=== PATIENT | female | born 1990 | race Caucasian/White ===

== ENCOUNTER 2021-01-01 08:00 | Outpatient (CLI) | payer BC ==
[2021-01-01 11:44] LABS: BASOPHILS # (AUTO) 0.1 10^3/uL (0.0-0.1); BASOPHILS % (AUTO) 0.8 %; EOSINOPHILS # (AUTO) 0.1 10^3/uL (0.0-0.7); EOSINOPHILS % (AUTO) 1.9 %; HGB - HEMOGLOBIN 13.5 g/dL (12.0-16.0); LYMPHOCYTES # (AUTO) 1.9 10^3/uL (1.5-3.5); LYMPHOCYTES % (AUTO) 30.1 %; MEAN CORPUSCULAR HEMOGLOBIN 30.1 pg (27.0-31.0); MEAN CORPUSCULAR HGB CONC 32.9 g/dL (32.0-36.0); MEAN CORPUSCULAR VOLUME 91.3 fL (81.0-99.0); MONOCYTES # (AUTO) 0.6 10^3/uL (0.0-1.0); MONOCYTES % (AUTO) 8.9 %; NEUTROPHILS # (AUTO) 3.7 10^3/uL (1.5-6.6); PLT - PLATELET COUNT 232 10^3/uL (130-450); RED BLOOD COUNT 4.49 10^6/uL (4.20-5.40); RED CELL DISTRIBUTION WIDTH 11.1 % (12.0-15.0); WHITE BLOOD COUNT 6.3 x10^3/uL (4.8-10.8)
[2021-01-01 11:56] LABS: ALBUMIN 4.3 g/dL (3.2-5.5); ALBUMIN/GLOBULIN RATIO 1.5 (1.0-2.2); BILIRUBIN,TOTAL 0.6 mg/dL (0.2-1.0); CALCIUM 9.4 mg/dL (8.5-10.3); CREATININE 0.8 mg/dL (0.4-1.0); POTASSIUM 4.1 mmol/L (3.5-5.0); TOTAL PROTEIN 7.2 g/dL (6.7-8.2)
[2021-01-01 12:03] LABS: BILIRUBIN,URINE NEGATIVE (NEGATIVE); CLARITY,URINE CLEAR (CLEAR); GLUCOSE, URINE (UA) NEGATIVE (NEGATIVE); KETONES,URINE (UA) NEGATIVE (NEGATIVE); LEUKOCYTE ESTERASE, URINE NEGATIVE (NEGATIVE); NITRITE,URINE NEGATIVE (NEGATIVE); OCCULT BLOOD,URINE NEGATIVE (NEGATIVE); PROTEIN,URINE NEGATIVE (NEGATIVE); UROBILINOGEN,URINE 0.2 (NORMAL) E.U./dL (NORMAL)
[2021-01-01 12:16] LABS: BACTERIA,URINE None Seen /HPF (None Seen); RBC,URINE None Seen /HPF (0-5); SQUAMOUS EPITHELIAL CELL,UR NONE SEEN (<= Few); WBC,URINE 0-3 /HPF (0-5)
== END 2021-01-01 23:59 | disposition home or self-care (01) ==
LOC: LAB.N 08:00
PROVIDERS: ATTEND Family Medicine
DX: R10.31 Right lower quadrant pain (principal)
CPT/HCPCS: 36415; 80053; 81001; 81003; 82150; 83690; 85025; 87086

== ENCOUNTER 2022-03-17 12:38 | Outpatient (CLI) | payer BC ==
[2022-03-17 14:11] LABS: BASOPHILS # (AUTO) 0.1 10^3/uL (0.0-0.1); BASOPHILS % (AUTO) 0.5 %; EOSINOPHILS # (AUTO) 0.1 10^3/uL (0.0-0.7); EOSINOPHILS % (AUTO) 0.9 %; HCT - HEMATOCRIT 38.6 % (37.0-47.0); HGB - HEMOGLOBIN 12.9 g/dL (12.0-16.0); LYMPHOCYTES # (AUTO) 1.7 10^3/uL (1.5-3.5); LYMPHOCYTES % (AUTO) 18.1 %; MEAN CORPUSCULAR HEMOGLOBIN 28.9 pg (27.0-31.0); MEAN CORPUSCULAR HGB CONC 33.4 g/dL (32.0-36.0); MEAN CORPUSCULAR VOLUME 86.4 fL (81.0-99.0); MEAN PLATELET VOLUME 9.4 fL (7.9-10.8); MONOCYTES # (AUTO) 0.6 10^3/uL (0.0-1.0); MONOCYTES % (AUTO) 6.5 %; NEUTROPHILS % (AUTO) 73.8 %; PLT - PLATELET COUNT 272 10^3/uL (130-450); RED BLOOD COUNT 4.47 10^6/uL (4.20-5.40); RED CELL DISTRIBUTION WIDTH 11.8 % (12.0-15.0); WHITE BLOOD COUNT 9.5 x10^3/uL (4.8-10.8)
[2022-03-18 03:09] LABS: HBsAG SCREEN Negative (Negative); HCV AB 0.9 s/co ratio (0.0-0.9)
[2022-03-18 05:09] LABS: HIV SCREEN 4TH GENERATION Non Reactive (Non Reactive)
[2022-03-18 08:09] LABS: VARICELLA-ZOSTER AB IGG 3061 index (Immune >165)
[2022-03-18 11:09] LABS: RPR Non Reactive (Non Reactive)
== END 2022-03-17 12:39 | disposition home or self-care (01) ==
LOC: LAB 12:38
PROVIDERS: ATTEND Nurse Practitioner Obstetrics & Gynecology
DX: Z36.89 Encounter for other specified antenatal screening (principal)
CPT/HCPCS: 36415; 85025; 86592; 86762; 86787; 86803; 86850; 86900; 86901; 87340; 87389

== ENCOUNTER 2022-05-31 07:21 | Outpatient (CLI) | payer BC ==
--- NOTE | 2022-05-31 11:57 | Ultrasound Report ---
PROCEDURE: OB Detailed Eval INDICATIONS: SUPERVISION OF OUTSIDE/PRIOR DATING DATA: Last menstrual period (LMP): 01/09/2022. LMP-based estimated date of delivery (LOS): 10/16/2022. First dating scan (date and location): 05/31/2022. Estimated date of delivery (LOS) from first dating scan: 10/16/2022. The below data below was generated using the clinical LOS of 10/16/2022 TECHNIQUE: Real-time scanning was performed of the fetus, with image documentation and biometric measurements. Endovaginal scanning: None COMPARISON: None. FINDINGS: General: A single living intrauterine gestation is present. Presentation: Variable Placenta: Placental position is posterior/fundal, without previa. Amniotic fluid index: 14.5 cm, normal for gestational age. heart rate: 152 beats per minute. Maternal cervical canal: 3.5 cm long; normal length is 2.5 cm or more. biometrics: Biparietal diameter: 4.7 cm, 20 week 2 day Head circumference: 18.0 cm, 20 week 3 day Abdominal circumference: 15.9 cm, 21 week 0 day Femur length: 3.2 cm, 20 week 0 day Estimated gestational age from initial scan: 20 week 2 day Composite gestational age from present scan: 20 week 2 day Estimated weight and percentile: 361.3 g, 60th percentile Measurement variability in biometric dating: +/- 10 days from 12-20 weeks gestation, +/- 2 weeks from 20-30 weeks gestation, +/- 3 weeks at 30 weeks gestation or later. Anatomic survey: Neuro: Ventricles are normal at less than 10 mm. Cisterna magna is normal at 3-11 mm. Cerebellum i s normal in size and morphology. Nuchal skin fold: Normal at less than 6 mm between 14 and 20 weeks gestational age. Face: Nose and lips, facial profile are normal. Spine: No evidence for spina bifida. Heart: 4-chambered heart is present, with normal ventricular outflow tracts. Diaphragm: Diaphragm is intact. Stomach: Left-sided stomach is present. Kidneys: Bilateral renal pyelocaliectasis measures 6 mm on the right and 5 mm left Cord: 3 vessel cord has orthotopic insertion. Bladder: Normal in size. Extremities: All 4 extremities are visualized. IMPRESSION: Single live intrauterine consistent with a 20 week 2 day gestation by current ultrasound. Bilateral renal pelvocaliectasis. Attention will be given on follow-up. Remainder of the anatomic survey within normal limits Reviewed by: Goyo Harding MD on 05/31/2022 10:56 AM [facility] Approved by: Goyo Harding MD on 05/31/2022 10:56 AM [facility] Station ID: [id number]
== END 2022-05-31 07:22 | disposition home or self-care (01) ==
LOC: DI 07:21
PROVIDERS: ATTEND Nurse Practitioner Obstetrics & Gynecology
DX: Z34.02 Encounter for supervision of normal first pregnancy, second trimester (principal); Z36.89 Encounter for other specified antenatal screening

== ENCOUNTER 2022-07-11 11:18 | Outpatient (CLI) | payer BC ==
[2022-07-11 12:38] LABS: HGB - HEMOGLOBIN 12.2 g/dL (12.0-16.0); MEAN CORPUSCULAR VOLUME 91.1 fL (81.0-99.0); MEAN PLATELET VOLUME 9.4 fL (7.9-10.8); RED BLOOD COUNT 4.06 10^6/uL (4.20-5.40); RED CELL DISTRIBUTION WIDTH 12.1 % (12.0-15.0); WHITE BLOOD COUNT 10.2 x10^3/uL (4.8-10.8)
== END 2022-07-11 11:19 | disposition home or self-care (01) ==
LOC: LAB 11:18
PROVIDERS: ATTEND Nurse Practitioner Obstetrics & Gynecology
DX: Z36.9 Encounter for antenatal screening, unspecified (principal)
CPT/HCPCS: 36415; 82950; 85027

== ENCOUNTER 2022-08-30 18:33 | Outpatient (CLI) | payer BC ==
--- NOTE | 2022-09-01 10:18 | Ultrasound Report ---
PROCEDURE: OB F/U or Repeat INDICATIONS: BILATERL RENAL PELVIECTASIS OUTSIDE/PRIOR DATING DATA: Last menstrual period (LMP): 01/09/2022. LMP-based estimated date of delivery (LOS): 10/16/2022. First dating scan (date and location): 05/31/2022 at [facility]. Estimated date of delivery (LOS) from first dating scan: 10/16/2022. The below data below was generated using the working LOS of 10/16/2022 TECHNIQUE: Real-time scanning was performed of the fetus, with image documentation and biometric measurements. COMPARISON: OB ultrasound, 05/31/2022. FINDINGS: General: A single living intrauterine gestation is present. Presentation: Vertex Placenta: Placental position is posterior, without previa. Amniotic fluid index: 12.1 cm; largest pocket 4.5 cm. heart rate: 130 beats per minute. Maternal cervical canal: Closed measuring 3.4 cm long; normal length is 2.5 cm or more. biometrics: Not performed Estimated gestational age from initial scan: 33 weeks 2 days. Measurement variability in biometric dating: +/- 10 days from 12-20 weeks gestation, +/- 2 weeks from 20-30 weeks gestation, +/- 3 weeks at 30 weeks gestation or more. Other: Bilateral mild renal pelviectasis, measuring 0.7 cm in left kidney and a 0.6 m in right kidney. IMPRESSION: 1. A single living IUP redemonstrated. 2. Persistent mild renal pelviectasis. 3. Normal [place]. Reviewed by: Jacobo Valdez MD on 09/01/2022 10:17 AM PDT Approved by: Jacobo Valdez MD on 09/01/2022 10:17 AM PDT Station ID: [id number]
== END 2022-08-30 18:34 | disposition home or self-care (01) ==
LOC: DI 18:33
PROVIDERS: ATTEND Nurse Practitioner Obstetrics & Gynecology
DX: O36.899 Maternal care for other specified fetal problems, unspecified trimester (principal); Z3A.33 33 weeks gestation of pregnancy

== ENCOUNTER 2022-10-23 04:44 | Inpatient (IN) | payer BC ==
[2022-10-23] MEDS ORDERED: TRANEXAMIC ACID IN NACL 1,000 MG/100 ML BAG IV PRN (05:20)
[2022-10-23] MEDS ORDERED: lidocaine 1% 20 ML MDV ID PRN (05:20)
[2022-10-23] MEDS ORDERED: NIFEdipine 10 MG CAPSULE PO PRN (05:20)
[2022-10-23] MEDS ORDERED: miSOPROStoL 200 MCG TABLET PR PRN (05:20)
[2022-10-23] MEDS ORDERED: LACTATED RINGERS 1,000 ML IV PRN (05:20)
[2022-10-23] MEDS ORDERED: hydrALAZINE INJ 20 MG/ML VIAL IVP PRN ×2 (05:20)
[2022-10-23] MEDS ORDERED: METHYLERGONOVINE 0.2 MG/ML VIAL IM PRN (05:20)
[2022-10-23] MEDS ORDERED: miSOPROStoL 200 MCG TABLET BC PRN (05:20)
[2022-10-23] MEDS ORDERED: CARBOPROST TROMETHAMINE 250 MCG/ML AMP IM PRN (05:20)
[2022-10-23] MEDS ORDERED: OXYTOCIN 10 UNIT/ML VIAL IM PRN (05:20)
[2022-10-23] MEDS ORDERED: TERBUTALINE 1 MG/ML VIAL SUBQ PRN (05:20)
[2022-10-23] MEDS ORDERED: LABETALOL 20 MG/4 ML SYRINGE IVP PRN ×3 (05:20)
[2022-10-23] MEDS ORDERED: OXYTOCIN/SODIUM CHLORIDE 500 ML IV PRN (05:20)
[2022-10-23] MEDS ORDERED: fentaNYL 100 MCG/2 ML VIAL IVP PRN (05:20)
[2022-10-23] MEDS ORDERED: SODIUM CHLORIDE FLUSH 0.9% 10 ML SYRINGE IVP PRN (05:20)
[2022-10-23] MEDS ORDERED: AMPICILLIN 2 GM in SODIUM CHLORIDE 0.9% MINIBAG 100 ML IV ONE (06:00)
[2022-10-23] MEDS ORDERED: SODIUM CHLORIDE FLUSH 0.9% 10 ML SYRINGE IVP SCH (06:00)
[2022-10-23 06:11] LABS: BASOPHILS % (AUTO) 0.4 %; EOSINOPHILS # (AUTO) 0.1 10^3/uL (0.0-0.7); EOSINOPHILS % (AUTO) 0.7 %; HCT - HEMATOCRIT 38.4 % (37.0-47.0); HGB - HEMOGLOBIN 13.1 g/dL (12.0-16.0); LYMPHOCYTES # (AUTO) 2.1 10^3/uL (1.5-3.5); LYMPHOCYTES % (AUTO) 19.1 %; MEAN CORPUSCULAR HEMOGLOBIN 30.8 pg (27.0-31.0); MEAN CORPUSCULAR HGB CONC 34.1 g/dL (32.0-36.0); MEAN CORPUSCULAR VOLUME 90.4 fL (81.0-99.0); MEAN PLATELET VOLUME 10.7 fL (7.9-10.8); MONOCYTES # (AUTO) 0.9 10^3/uL (0.0-1.0); MONOCYTES % (AUTO) 8.1 %; NEUTROPHILS # (AUTO) 7.7 10^3/uL (1.5-6.6); NEUTROPHILS % (AUTO) 71.2 %; PLT - PLATELET COUNT 208 10^3/uL (130-450); RED BLOOD COUNT 4.25 10^6/uL (4.20-5.40); RED CELL DISTRIBUTION WIDTH 12.1 % (12.0-15.0); WHITE BLOOD COUNT 10.8 x10^3/uL (4.8-10.8)
[2022-10-23] MEDS ORDERED: diphenhydrAMINE INJ 50 MG/ML VIAL IVP PRN ×3 (06:33→11:59)
[2022-10-23] MEDS: AMPICILLIN 1 GM in SODIUM CHLORIDE 0.9% MINIBAG 100 ML IV SCH ×2 (10:04→13:59)
[2022-10-23] MEDS ORDERED: METOCLOPRAMIDE 10 MG/2 ML VIAL IVP PRN ×2 (10:57→11:59)
[2022-10-23] MEDS ORDERED: ONDANSETRON 4 MG/2 ML VIAL IVP PRN ×2 (10:57→11:59)
[2022-10-23] MEDS ORDERED: ePHEDrine 50 MG/ML VIAL IVP PRN ×2 (10:57→11:59)
[2022-10-23] MEDS ORDERED: NALOXONE 0.4 MG/ML VIAL IVP PRN ×2 (10:57→11:59)
[2022-10-23] MEDS ORDERED: NALBUPHINE 10 MG/ML AMP IVP PRN ×2 (10:57→11:59)
[2022-10-23] MEDS ORDERED: fent/BUPIV 2 MCG/0.125% 250 ML EP PRN (10:57)
[2022-10-23] MEDS ORDERED: ROPIVACAINE 0.2% 200 MG/100 ML BAG EP PRN ×2 (11:06→11:59)
--- NOTE | 2022-10-23 11:11 | HISTORY & PHYSICAL EXAMINATION ---
Admit History - Visit Reason Visit Reason: Contractions - : 2 Parity: 1 Premature: 0 Ectopic: 0 : 0 Care: positive: [facility] Risk/History: positive: None Complications This : positive: None Smoking Status: Never smoker - Mother's Labs Mother's Blood Type: positive: B Mother's RH: positive: Positive GBS: positive: Group B Strep Positive Rubella Status: positive: Immune - HPI Diagnosis/Indication for NST: Post-dates gestation Current EDU 10/16/22 Gestation 41 Weeks and 0 Days 2 Vital Signs Temperature 36.5 C 10/23/22 05:55 Heart Rate 58 L 10/23/22 05:55 Respiratory Rate 16 10/23/22 05:55 Blood Pressure 129/88 H 10/23/22 05:55 Temperature 36.5 C 10/23/22 05:55 Heart Rate 58 L 10/23/22 05:55 Respiratory Rate 16 10/23/22 05:55 Blood Pressure 129/88 H 10/23/22 05:55 O2 Saturation If not protocol: Oxygen Flow, liters/minute - NST Procedure FHR baseline 140s, moderate variability, + accels, no decels Contractions palpate moderate every 2-3 minutes with soft resting tone Meds/Allgy - Allergies Allergies/Adverse Reactions: Allergies Allergy/AdvReac Type Severity Reaction Status Date / Time Penicillins AdvReac Unknown Rash Verified 10/23/22 05:20 Review of Systems - Constitutional Constitutional: denies: Fatigue, Fever, Chills, Malaise - Eyes Eyes: denies: Blurred vision, Spots in vision, Dipolpia - Cardiovascular Cariovascular: denies: Irregular heart rate, Palpitations, Chest pain, Edema - Respiratory Respiratory: denies: Cough, Wheezing, SOB at rest - Gastrointestinal Gastrointestinal: denies: Constipation, Diarrhea, Nausea, Vomiting - Genitourinary Genitourinary: denies: Dysuria - Musculoskeletal Musculoskeletal: denies: Back pain - Integumentary Integumentary: denies: Rash, Pruritis - Neurological Neurological: denies: Headache - Psychiatric Psychiatric: denies: Depression, Anxiety - Hematologic/Lymphatic Hematologic/Lymphatic: denies: Anemia Physical - Abdominal Exam Vital Signs: Temp Pulse Resp BP Pulse Ox O2 Flow Rate 36.5 C 58 L 16 129/88 H 10/23/22 05:55 10/23/22 05:55 10/23/22 05:55 10/23/22 05:55 Contraction Frequency (min/apart): 2-3 Contraction Intensity: positive: Moderate Uterine Resting Tone: positive: Soft - Monitoring Heart Rate Baseline: 140 Strip Review: positive: Category I - Presentation Presentation: positive: Vertex - Vaginal Exam Membranes: positive: Membranes intact Dilation (in cm): 4-5 Effacement (%): 80 Station: positive: -3 Cervical Position: positive: Posterior - Speculum Exam Speculum Exam Performed: positive: No Plan for Labor - Plan For Labor Plan for Labor: HPI: Reta is a 31yo @ 41.0wks gestation by LMP c/w 10.1wks U/S who presents to [facility] with c/o contractions. She was scheduled this morning for medical induction of labor secondary to postdates however her contractions have increased in frequency and intensity since early this morning. She denies leakage of fluid. She reports increased mucousy discharge that has occasional blood streaks in it since last night but denies other vaginal bleeding. She reports +FM. FHR category I. She has been a patient of [facility] for the duration of her which has remained uncomplicated. Her FAS did reveal mild bilateral renal pelviectasis with a repeat ultrasound at 33wks which demonstrated persistent, mild renal pelviectasis. She will be admitted to [facility] for expectant management. She is supported by her Iam. 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 SAB x0. Last pap 10/2020 WNL, No hx of abnormals. Medical Hx: anxiety/depression Surgical Hx: wisdom teeth removal Family Hx: Thyroid disease - mother; heart disease - MGF; skin cancer - father; breast cancer - PGM Social: , lives with Iam. Works at [employer]. No tobacco, ETOH or recreational drug use. Caffeine intake -minimal. Meds: PNV, Vitamin D Allergies: Penicillin - rash as a baby course: B positive, antibody negative Rubella immune, varicella immune Hep B non-reactive, HIV non-reactive, RPR non-reactive, Hep C non-reactive Initial U/S @ 10.1wks gestation c/w LMP dating COVID-19 vaccine - declined Tdap vaccine - received 3rd trimester FAS WNL with the exception of bilateral renal pelvocaliectasis (6mm-right, 5mm- left). Posterior fundal placenta, no previa. Size c/w dating (EFW 60%tile). 3VC. Glucola- 79 F/u ultrasound at 33wks: Persistent mild renal pelviectasis. 0.7 cm left kidney and 0.6cm in right kidney. GBS positive Physical exam: Normocephalic, atraumatic Heart RRR w/o M/G/R Lungs CTAB Abdomen gravid, soft, nontender FHR baseline 140s, moderate variability, + accels, no decels Contractions palpate moderate every 2-3 minutes with soft resting tone SVE 4-5/80/-3, posterior and vertex with intact membranes. Bilateral LE's trace edema Mood is good Assessment: 31yo @ 41.0wks gestation by LMP c/w 10.1wk U/S Postdates Early labor FHR Category I GBS positive Plan: Admit for expectant management. Continuous monitoring. Reviewed risks vs benefits of Ampicillin for GBS prophyalxis secondary to childhood rash with penicillin and pt desires to initiate. Initiate penicillin for GBS prophylaxis per protocol. Encouraged ambulation and position changes. Jacuzzi PRN. Nitrous oxide PRN. Epidural per maternal request. Anticipate .
--- NOTE | 2022-10-23 12:02 | ANESTHESIA ---
Pre-Anesthesia VS, & Labs - Diagnosis labor - Procedure epidural for labor analgesia Vital Signs: Temp Pulse Resp BP Pulse Ox O2 Flow Rate 36.5 C 58 L 16 129/88 H 10/23/22 05:55 10/23/22 05:55 10/23/22 05:55 10/23/22 05:55 Height: 5 ft 6 in Weight (kg): 92.986 kg Body Mass Index: 33.0 BMI Classification: Obese - Is Patient ?: Yes - Lab Results Current Lab Results: Laboratory Tests 10/23/22 05:55: WBC 10.8, RBC 4.25, Hgb 13.1, Hct 38.4, MCV 90.4, MCH 30.8, MCHC 34.1, RDW 12.1, Plt Count 208, MPV 10.7, Neut # (Auto) 7.7 H, Lymph # (Auto) 2.1, [place] # (Auto) 0.9, Eos # (Auto) 0.1, Baso # (Auto) 0.0, Absolute Nucleated RBC 0.00, Nucleated RBC % 0.0 10/23/22 05:55: Blood Type B POSITIVE, Antibody Screen NEGATIVE Lab results reviewed: Yes Fish Bones: 10/23/22 05:55 Home Medications and Allergies Active Medications Carboprost Tromethamine (Carboprost Tromethamine 250 Mcg/Ml Amp) 250 mcg IM .ONCE PRN PRN Reason: Hemorrhage Diphenhydramine HCl (Diphenhydramine Inj 50 Mg/Ml Vial) 50 mg IVP Q6H PRN PRN Reason: Anaphylaxis Diphenhydramine HCl (Diphenhydramine Inj 50 Mg/Ml Vial) 12.5 - 25 mg IVP Q6HR PRN PRN Reason: ITCHING Ephedrine Sulfate (Ephedrine 50 Mg/Ml Vial) 5 mg IVP Q5M PRN PRN Reason: For SBP<100;give until SBP>100 Fentanyl (Fentanyl 100 Mcg/2 Ml Vial) 50 mcg IVP Q1H PRN PRN Reason: Severe Pain (score 7-10) Hydralazine HCl (Hydralazine Inj 20 Mg/Ml Vial) 5 - 10 mg IVP Q20M PRN; Protocol PRN Reason: SBP> or= 160 OR DBP> or= 110 Hydralazine HCl (Hydralazine Inj 20 Mg/Ml Vial) 10 mg IVP .ONCE PRN; Protocol PRN Reason: SBP> or= 160 OR DBP> or= 110 Lactated Ringer's (Lr) 500 mls @ 999 mls/hr IV PRN PRN PRN Reason: distress, maternal hypot Oxytocin/Sodium Chloride (Pitocin/Sodium Chloride) 500 mls @ 999 mls/hr IV PRN PRN; Protocol PRN Reason: POST- HEMORR PREVENTION Tranexamic Acid (Tranexamic 1,000 Mg/100ml-Nacl) 1,000 mg in 100 mls @ 600 mls/hr IV Q30M PRN PRN Reason: EBL >1200mL and within 3hr Ampicillin Sodium 1 gm/ Sodium (Chloride) 100 mls @ 200 mls/hr IV Q4H ARSENIO Last Admin: 10/23/22 10:04 Dose: 200 mls/hr Ropivacaine (Naropin 0.2%) 200 mg in 100 mls @ 0 mls/hr EP PRN PRN; Protocol PRN Reason: PAIN 1-4 Labetalol HCl (Labetalol 20 Mg/4 Ml Syringe) 20 - 80 mg IVP Q10M PRN; Protocol PRN Reason: SBP> or= 160 OR DBP> or= 110 Labetalol HCl (Labetalol 20 Mg/4 Ml Syringe) 20 mg IVP .ONCE PRN; Protocol PRN Reason: SBP> or= 160 OR DBP> or= 110 Labetalol HCl (Labetalol 20 Mg/4 Ml Syringe) 20 - 40 mg IVP Q10M PRN; Protocol PRN Reason: SBP> or= 160 OR DBP> or= 110 Lidocaine HCl (Lidocaine 1% 20 Ml Mdv) 20 ml ID .ONCE PRN PRN Reason: PERINEAL REPAIR Stop: 10/26/22 05:20 Methylergonovine Maleate (Methylergonovine 0.2 Mg/Ml Vial) 0.2 mg IM .ONCE PRN PRN Reason: Hemorrhage Metoclopramide HCl (Metoclopramide 10 Mg/2 Ml Vial) 10 mg IVP Q6HR PRN PRN Reason: Nausea / Vomiting Misoprostol (Misoprostol 200 Mcg Tablet) 600 mcg BC .ONCE PRN PRN Reason: Hemorrhage Misoprostol (Misoprostol 200 Mcg Tablet) 800 mcg TN .ONCE PRN PRN Reason: Hemorrhage Nalbuphine HCl (Nalbuphine 10 Mg/Ml Amp) 2.5 - 5 mg IVP Q4H PRN PRN Reason: ITCHING Naloxone HCl (Naloxone 0.4 Mg/Ml Vial) 0.1 mg IVP Q2M PRN PRN Reason: RR<8 Nifedipine (Nifedipine 10 Mg Capsule) 10 - 20 mg PO Q20M PRN; Protocol PRN Reason: SBP> or= 160 OR DBP> or= 110 Ondansetron HCl (Ondansetron 4 Mg/2 Ml Vial) 4 mg IVP Q6HR PRN PRN Reason: Nausea / Vomiting Oxytocin (Oxytocin 10 Unit/Ml Vial) 10 unit IM .ONCE PRN PRN Reason: Step One if no IV access. Sodium Chloride (Sodium Chloride Flush 0.9% 10 Ml Syringe) 10 ml IVP PRN PRN PRN Reason: NEEDED PER PROVIDER ORDERS Sodium Chloride (Sodium Chloride Flush 0.9% 10 Ml Syringe) 10 ml IVP Q8H ARSENIO Terbutaline Sulfate (Terbutaline 1 Mg/Ml Vial) 0.25 mg SUBQ .ONCE PRN PRN Reason: Tachystole Allergies/Adverse Reactions: Allergies Allergy/AdvReac Type Severity Reaction Status Date / Time Penicillins AdvReac Unknown Rash Verified 10/23/22 05:20 Anes History & Medical History - Anesthetic History Anesthesia Complications: reports: No previous complications Family history of Anesthesia Complications: Denies Family history of Malignant Hyperthermia: Denies - Medical History Cardiovascular: reports: None Pulmonary: reports: None Gastrointestinal: reports: GERD (daily tums) Urinary: reports: None Neuro: reports: None Musculoskeletal: reports: None Endocrine/Autoimmune: reports: None Blood Disorders: reports: None Skin: reports: None Smoking Status: Never smoker - Obstetrical History : 2 Parity: 1 Events: reports: None Complications: reports: None Exam General: Alert, Oriented x3, Cooperative Dental: WNL Mouth Openin Fingerbreadth Neck Mobility: Normal Mallampati classification: II Thyromental Distance: 4-6 cm Respiratory: Lungs clear Cardiovascular: Regular rate Plan Anesthesia Type: Epidural Consent for Procedure(s) Verified and Reviewed: Yes Code Status: Attempt Resuscitation ASA classification: 2-Mild systemic disease Is this case an emergency?: No
[2022-10-23] MEDS ORDERED: WITCH HAZEL/GLYCERIN 1 PAD TOP PRN (17:00)
[2022-10-23] MEDS ORDERED: HYDROCORTISONE 1% CREAM 28 GM TUBE PR PRN (17:00)
--- NOTE | 2022-10-23 17:07 | DELIVERY NOTE ---
Delivery Note - Labor Labor: positive: Spontaneous, Augmented by ARM - Infant Delivery Method Delivery Method: positive: Spontaneous vaginal delivery - Presentation Presentation: positive: Vertex, ARGELIA - left occiput anterior - Nuchal Cord Nuchal Cord: positive: None - Amniotic Fluid Description Amniotic Fluid Description: positive: Clear - Episiotomy Type Episiotomy Type: positive: None - Laceration Laceration: positive: 2nd degree, Perineal, Vaginal - Suture Suture Type: positive: Vicryl Suture Size: positive: 2-0 - Delivery Outcome Delivery Outcome: positive: Livebirth - : positive: Placed in direct skin contact with mother, Stimulated, Warmed, Cotton used sex: positive: Male - Cord Cord: positive: 3 vessels - Placenta Placenta: positive: Intact, Spontaneous - Estimated Blood Loss Estimated Blood Loss (in cc): 200 - Post Delivery Events Post Delivery Events: positive: No post delivery events - Delivery Comments (Free Text/Narrative) Delivery Comments (Free Text/Narrative): Labor: This 31yo @ 41.0wks gestation by 10.1wk U/S who presented to [facility] on 10/23/2022 with c/o contractions. Cervix was 4-5/80/-3, posterior and vertex with intact membranes. She was admitted to [facility] for expectant management. FHR pattern demonstrated Category I pattern throughout labor with intermittent periods of category II towards the end of the first stage of labor and throughout the 2nd stage of labor however overall remained reassuring. Normal labor course. Epidural was placed per maternal request. AROM occurred at 1155 and was noted to be a small amount of clear fluid. Pt progressed to c/c/+2 @ 1602, with onset of active spontaneous pushing at 1609. : Normal SVB of viable male on 10/23/2022 @ 1626. No nuchal cord. The was placed on maternal abdomen, stimulated, dried, and placed skin to skin. 's were 9/9 at 1 and 5 minutes respectively. The umbilical cord was allowed to stop pulsating at which time it was doubly clamped by CNM and cut by FOB. Cord blood was obtained. 3VC. Fundal massage and gentle cord traction applied for active management of the third stage. Placenta delivered spontaneously and intact at 1631. Pitocin administered via IV for hemostasis. EBL 200mL. Fourth stage: Uterine fundus firm and there is no excessive bleeding. The perineum, vagina, and cervix were inspected and noted to have 2nd degree perineal/vaginal laceration which was repaired using a 2-[address]-1 needle in standard fashion and under sterile conditions. Vaginal and rectal examination following repair was performed. Tissues well approximated. initiated. Both mother and baby were left in stable condition.
[2022-10-23] MEDS: IBUPROFEN 800 MG TABLET PO SCH (19:29)
[2022-10-23] MEDS: DOCUSATE SODIUM 100 MG CAPSULE PO SCH (21:08)
[2022-10-24] MEDS: IBUPROFEN 800 MG TABLET PO SCH ×3 (01:37→14:03)
[2022-10-24] MEDS: ACETAMINOPHEN 500 MG TABLET PO SCH ×2 (01:37→10:20)
[2022-10-24] MEDS: DOCUSATE SODIUM 100 MG CAPSULE PO SCH (08:01)
--- NOTE | 2022-10-24 11:35 | DISCHARGE SUMMARY ---
Discharge Summary - HOSPITAL COURSE Hospital Course: Date of Admission: 10/23/2022 Date of Discharge: 10/24/2022 Diagnosis on Admission: 1. 31yo @ 41.0wks gestation by LMP c/w 10.1wk U/S 2. Postdates 3. Early labor 4. FHR Category I 5. GBS positive Diagnosis on Discharge: 1. 31yo PPD#1 s/p TSVB viable male infant 2. 2nd degree perineal laceration - intact 3. 4. Normal recovery Brief History: She is a patient of [facility] who presented on 10/23/2022 with c/o contractions. Upon arrival cervix was 5/80/-3, posterior and vertex with intact membranes. Epidural was placed per maternal request. AROM occurred at 1155 and was noted to be a moderate amount of clear fluid. She progressed spontaneousl to deliver a viable male infant on 10/23/2022 @ 1426 over 2nd degree perineal laceration which was repaired using a 2-[address]-1 needle, in standard fashion and under sterile conditions. Apgars were 9/9 at 1 and 5 minutes respectively. EBL 200mL. She has been doing well in her course. She is ambulating and tolerating a regular diet. She is urinating without difficulty and her lochia is normal. Her pain is well controlled with oral medications. She will be discharged home today on day #1 with instructions to continue taking her vitamin while and to continue taking ibuprofen and tylenol over the counter as needed for pain management. She intends to follow up with myself at [facility] in 1 week or sooner if needed. She has been given precautions to call if she has any worsening fevers, chills, abdominal pain, increased vaginal bleeding or foul smelling vaginal lochia. Physical exam: Normocephalic, atraumatic, heart RRR w/o M/G/R, lungs CTAB, abdomen soft and nontender with fundus firm at U-1, perineum intact, repair with mild edema, light lochia rubra, bilateral LE's trace edema. Mood is good. - ALLERGIES Allergies/Adverse Reactions: Allergies Allergy/AdvReac Type Severity Reaction Status Date / Time Penicillins AdvReac Unknown Rash Verified 10/23/22 05:20 - LABS Result Diagrams: 10/23/22 05:55
--- NOTE | 2022-10-24 11:36 | Discharge Plan ---
Discharge Plan Problem Reviewed?: Yes Disposition: Home, Self Care Condition: Good Diet: Regular Activity Restrictions: No Restrictions Shower Restrictions: No Driving Restrictions: No Weight Bearing: Full Weight Instruction Topics: Vaginal After No Smoking: If you smoke, Please STOP! Call for help. Follow-up with: Sobeida Crowder CNM, ARNP [Provider Admit Priv/Credential] - 1 Week
[2022-10-24 12:48] VITALS: BP 133/76
--- NOTE | 2022-10-24 17:46 | Labor Flowsheet ---
Labor Flowsheet Datetime Report Generated by CPN: 10/24/2022 17:46 Datetime: 10/24/2022 12:31 VITAL SIGNS NBP Sys/Marta/Mean (mmHg): 133 : 86 : 95 Pulse: 61 Datetime: 10/23/2022 21:54 SpO2 (%): 96 Datetime: 10/23/2022 18:30 Stage of : Patient Care Comments: pericare done. Bleeding precautions discussed. Datetime: 10/23/2022 17:30 PAIN Pain Scale: 0 Datetime: 10/23/2022 16:44 LaborFlag: Labor Datetime: 10/23/2022 16:26 Frequency (min): 1-3 Quality: Strong Duration (sec): 50-70 Pattern: Normal: <= 5 Contractions in 10 Minutes Resting Tone (Palpate): Relaxed FHR Baseline Changes: No Baseline Change Variability: Moderate 6-25 bpm Accelerations: 15X15 Decelerations: Variable Category: Category II Comments: male Datetime: 10/23/2022 16:17 Contraction Comments: head stim by CNM Datetime: 10/23/2022 16:15 UTERINE ACTIVITY Monitor Mode: External ASSESSMENT A Monitor Mode: Telemetry Datetime: 10/23/2022 16:06 Communication Comments: preparing for delivery Datetime: 10/23/2022 16:04 I/O Interventions: Ross Discontinued Datetime: 10/23/2022 16:02 VAGINAL EXAM Dilatation (cm): 10.0 Effacement (%): 100 Station: 2 Exam by: A. Lakesha Datetime: 10/23/2022 16:00 FHR Baseline Rate : 125 Anesthesia Level Check: T10- Umbilicus Datetime: 10/23/2022 15:49 PATIENT CARE Patient Position/Activity: Left Tilt; Semi-Fowlers Datetime: 10/23/2022 15:48 Pain Presence: None/Denies Pain Assessment Comments: left side numb. No longer feels contractions. Datetime: 10/23/2022 15:43 COMMUNICATION Communication: Call/Page Placed to Provider Datetime: 10/23/2022 15:23 Temperature (C): 37.1 Datetime: 10/23/2022 13:05 Anesthesia Comments: pt. asleep Datetime: 10/23/2022 12:04 Pain Goal: 8 Datetime: 10/23/2022 11:55 Membrane Status: Ruptured Membranes Rupture Method: Artificial Amniotic Fluid Color: Clear Amniotic Fluid Amount: Small Datetime: 10/23/2022 11:33 Monitor Interventions for FHR: Ultrasound Adjusted Datetime: 10/23/2022 11:27 Epidural Procedure: Test Dose Datetime: 10/23/2022 11:22 ANESTHESIA Anesthesia Plans: Local Datetime: 10/23/2022 11:03 MEDICATIONS Medication Comments: LR bolus started for epidural placement Datetime: 10/23/2022 10:08 Vital Sign Comments: Pt. standing with first BP, sitting for follow up bp Datetime: 10/23/2022 09:04 Monitor Interventions for UA: [place] Adjusted Datetime: 10/23/2022 08:54 Pain Type: Cramping Pain Location: Abdomen Pain Relief Measures: Comfort Measures Pain Coping: Talking Through Contractions; Breathing Through Contractions Comfort Measures: Breathing/Relaxation; Family Support Datetime: 10/23/2022 06:25 Cervix, Consistency: Soft Cervix, Position: Posterior Presentation 'A': Cephalic Lie 'A': Longitudinal Datetime: 10/23/2022 05:51 Respirations: 16 Temperature Route: Oral
== END 2022-10-24 17:40 | disposition home or self-care (01) | DRG 807 ==
LOC: WFO 04:44 → FBP 05:20
PROVIDERS: ADMIT Nurse Practitioner Obstetrics & Gynecology; ATTEND Nurse Practitioner Obstetrics & Gynecology
PROC: 10E0XZZ Delivery of Products of Conception, External Approach (ICD-10-PCS; principal; 2022-10-23)
PROC: 0KQM0ZZ Repair Perineum Muscle, Open Approach (ICD-10-PCS; 2022-10-23)
PROC: 10907ZC Drainage of Amniotic Fluid, Therapeutic from Products of Conception, Via Natural or Artificial Opening (ICD-10-PCS; 2022-10-23)
DX: O70.1 Second degree perineal laceration during delivery (principal); Z37.0 Single live birth; O99.824 Streptococcus B carrier state complicating childbirth; O48.0 Post-term pregnancy; Z3A.41 41 weeks gestation of pregnancy; O35.EXX0 Maternal care for other (suspected) fetal abnormality and damage, fetal genitourinary anomalies, not applicable or unspecified; Z88.0 Allergy status to penicillin
CPT/HCPCS: 85025; 86850; 86900; 86901; A9270; J7120